=== PATIENT | female | born 1995 | race Caucasian/White ===

== ENCOUNTER → 2016-04-14 | Outpatient (CLI) | payer OTHER ==
[~2016-04-14] MED LIST: /AUGM875TA; COLA50CA; No Historical Meds; TYLENOL #3; VICO5TAB
[2016-04-14 09:16] LABS: BASO # 0.1 K/mm3 (0.0-0.2); BASO % 0.9 % (0.0-1.0); EOS # 0.2 K/mm3 (0.0-0.50); EOS % 2.3 % (0.0-3.0); LYMPH # 1.8 K/mm3 (1.5-6.5); LYMPH % 25.1 % (24.0-44.0); MEAN CORPUSCULAR HEMOGLOBIN 26.5 pg (27.0-33.0); MEAN CORPUSCULAR HGB CONC 31.6 g/dl (32.0-36.5); MEAN CORPUSCULAR VOLUME 83.9 fl (80.0-96.0); MONO # 0.3 K/mm3 (0.0-0.8); MONO % 4.4 % (0.0-5.0); NEUTROPHILS # 4.6 K/mm3 (1.8-7.7); NEUTROPHILS % 65.3 % (36.0-66.0); RED CELL DISTRIBUTION WIDTH 14.2 % (11.5-14.5); WHITE BLOOD COUNT 7.1 K/mm3 (4.0-10.0)
[2016-04-14 10:08] LABS: ALBUMIN 3.8 GM/DL (3.2-5.2); ALBUMIN/GLOBULIN RATIO 1.12 (1.00-1.93); ALKALINE PHOSPHATASE 74 U/L (45-117); ALT/SGPT 38 U/L (12-78); ANION GAP 9 MEQ/L (8-16); AST/SGOT 22 U/L (15-37); BILIRUBIN,TOTAL 0.4 MG/DL (0.2-1.0); BLOOD UREA NITROGEN 15 MG/DL (7-18); CALCIUM LEVEL 8.4 MG/DL (8.5-10.1); CARBON DIOXIDE LEVEL 25 MEQ/L (21-32); CHLORIDE LEVEL 105 MEQ/L (98-107); CHOLESTEROL LEVEL 161 MG/DL (<200); CREATININE FOR GFR 0.62 MG/DL (0.55-1.02); FERRITIN 23 NG/ML (8-252); GLUCOSE, FASTING 102 MG/DL (70-105); POTASSIUM SERUM 4.3 MEQ/L (3.5-5.1); SODIUM LEVEL 139 MEQ/L (136-145); TOTAL PROTEIN 7.2 GM/DL (6.4-8.2); TRIGLYCERIDES LEVEL 159 MG/DL (<150)
== END ==
LOC: M LAB 08:01
PROVIDERS: ATTEND Physician Assistant Medical
DX: D50.9 Iron deficiency anemia, unspecified (principal); I10 Essential (primary) hypertension

== ENCOUNTER → 2016-04-14 | Outpatient (CLI) | payer OTHER ==
[2016-04-14 09:17] LABS: BASO # 0.1 K/mm3 (0.0-0.2); BASO % 0.8 % (0.0-1.0); EOS # 0.2 K/mm3 (0.0-0.50); EOS % 2.3 % (0.0-3.0); LARGE UNSTAINED CELL # 0.2 K/mm3 (0.0-0.4); LARGE UNSTAINED CELL % 2.3 % (0.0-4.0); LYMPH # 1.8 K/mm3 (1.5-6.5); LYMPH % 24.9 % (24.0-44.0); MEAN CORPUSCULAR HEMOGLOBIN 26.4 pg (27.0-33.0); MEAN CORPUSCULAR HGB CONC 31.5 g/dl (32.0-36.5); MEAN CORPUSCULAR VOLUME 83.9 fl (80.0-96.0); MONO # 0.3 K/mm3 (0.0-0.8); MONO % 4.4 % (0.0-5.0); NEUTROPHILS # 4.7 K/mm3 (1.8-7.7); NEUTROPHILS % 65.4 % (36.0-66.0); PLATELET COUNT, AUTOMATED 312 k/mm3 (150-450); RED CELL DISTRIBUTION WIDTH 14.2 % (11.5-14.5); WHITE BLOOD COUNT 7.2 K/mm3 (4.0-10.0)
[2016-04-14 09:41] LABS: ERYTHROCYTE SEDIMENTATION RATE 11 mm/hr (0-20)
[2016-04-14 10:22] LABS: ALBUMIN 3.8 GM/DL (3.2-5.2); ALBUMIN/GLOBULIN RATIO 1.12 (1.00-1.93); ALKALINE PHOSPHATASE 72 U/L (45-117); ALT/SGPT 37 U/L (12-78); ANION GAP 9 MEQ/L (8-16); AST/SGOT 22 U/L (15-37); BILIRUBIN,TOTAL 0.4 MG/DL (0.2-1.0); BLOOD UREA NITROGEN 15 MG/DL (7-18); CALCIUM LEVEL 8.5 MG/DL (8.5-10.1); CARBON DIOXIDE LEVEL 25 MEQ/L (21-32); CHLORIDE LEVEL 105 MEQ/L (98-107); CREATININE FOR GFR 0.58 MG/DL (0.55-1.02); GLUCOSE, FASTING 103 MG/DL (70-105); POTASSIUM SERUM 4.3 MEQ/L (3.5-5.1); SODIUM LEVEL 139 MEQ/L (136-145); TOTAL PROTEIN 7.2 GM/DL (6.4-8.2)
== END ==
LOC: M LAB 08:08
PROVIDERS: ATTEND Psychiatry & Neurology Neurology
DX: R51 Headache (principal)

== ENCOUNTER → 2016-12-28 | Outpatient (CLI) | payer MEDICAID ==
--- NOTE | 2016-12-28 14:44 | REP ---
FIRST TRIMESTER ULTRASOUND: Real-time sonographic evaluation of the gravid uterus performed utilizing transabdominal technique. There is a single living intrauterine gestation with an estimated gestational age 8 weeks 1 day based on a crown-rump length of 17 mm, EDC 08/08/2017. heart rate 176 beats per minute. There is no subchorionic hemorrhage. Cystic structure of the right ovary probably represents a corpus luteum measuring 1.6 cm in maximum diameter. Blood flow is seen in each ovary with duplex Doppler evaluation, with no torsion. Signed by Alan Cullen MD 12/28/2016 02:46 P
== END ==
LOC: M RAD 13:27
PROVIDERS: ATTEND Physician Assistant
DX: Z36.0 Encounter for antenatal screening for chromosomal anomalies (principal); Z3A.08 8 weeks gestation of pregnancy

== ENCOUNTER → 2017-02-06 | Outpatient (CLI) | payer MEDICAID, OTHER ==
--- NOTE | 2017-02-06 16:40 | REP ---
PELVIC ULTRASOUND: Real-time sonographic evaluation of the pelvis performed utilizing transabdominal and endovaginal technique. The bladder measures 5.8 x 5.4 x 6.7 cm. Uterus measures 8.2 x 5.0 x 4.6 cm. Endometrial thickness is 5 mm. Previously noted intrauterine gestation is no longer visualized as seen on 12/28/2016. Ovaries are normal in size and echotexture, the right ovary measuring 2.9 x 1.2 x 1.8 cm and left ovary 2.7 x 2.0 x 2.7 cm. There is no adnexal mass or free fluid. A tiny amount of fluid is seen in the lower uterine segment of the cervix. Resistive index right ovary is 0.61 and left ovary 0.48. IMPRESSION: Empty uterus with no evidence of intrauterine gestation seen on the prior study of 12/28/2016. No torsion or free fluid. Signed by Alan Cullen MD 02/06/2017 04:46 P
== END ==
LOC: M RAD 15:31
PROVIDERS: ATTEND Physician Assistant
DX: Z09 Encounter for follow-up examination after completed treatment for conditions other than malignant neoplasm (principal)

== ENCOUNTER 2017-05-14 17:24 | Emergency (ER) | payer OTHER ==
[2017-05-14] MEDS: ACETAMINOPHEN TAB 650MG DOSE (2X325MG) PO (20:00)
[2017-05-14] MEDS: NS 1,000 ML IV (20:45)
[2017-05-14 21:14] LABS: BASO # 0.1 10^3/uL (0.0-0.2); BASO % 0.7 % (0.0-1.0); EOS % 0.3 % (0.0-3.0); HEMATOCRIT 43.6 % (36.0-47.0); HEMOGLOBIN 13.9 g/dl (12.0-16.0); IMMATURE GRANULOCYTE % 0.2 % (0-3.0); LYMPH # 2.7 10^3/uL (1.5-6.5); LYMPH % 21.8 % (24.0-44.0); MEAN CORPUSCULAR HEMOGLOBIN 25.8 pg (27.0-33.0); MEAN CORPUSCULAR HGB CONC 31.9 g/dl (32.0-36.5); MONO # 0.7 10^3/uL (0.0-0.8); NEUTROPHILS # 8.6 10^3/uL (1.8-7.7); PLATELET COUNT, AUTOMATED 399 10^3/uL (150-450); RED BLOOD COUNT 5.38 10^6/uL (4.00-5.40); RED CELL DISTRIBUTION WIDTH 14.1 % (11.5-14.5); WHITE BLOOD COUNT 12.2 10^3/uL (4.0-10.0)
[2017-05-14 21:42] LABS: CONTROL LINE HCG INT CTR LINE PRESENT; HCG, SERUM QUALITATIVE NEGATIVE (NEGATIVE)
[2017-05-14] MEDS ORDERED: ISOVUE-370 76% 100ML VIAL (Q9967) As Ordered (21:43)
[2017-05-14 21:45] LABS: ANION GAP 10 MEQ/L (8-16); BLOOD UREA NITROGEN 13 MG/DL (7-18); CALCIUM LEVEL 9.2 MG/DL (8.5-10.1); CARBON DIOXIDE LEVEL 24 MEQ/L (21-32); CHLORIDE LEVEL 108 MEQ/L (98-107); CREATININE FOR GFR 0.69 MG/DL (0.55-1.30); GLUCOSE, FASTING 114 MG/DL (70-100); POTASSIUM SERUM 4.2 MEQ/L (3.5-5.1); SODIUM LEVEL 142 MEQ/L (136-145)
[2017-05-14] MEDS ORDERED: IBUPROFEN 600 MG TAB As Ordered (22:00)
[2017-05-14] MEDS: IBUPROFEN 600 MG TAB PO (22:08)
== END 2017-05-14 23:39 | disposition home or self-care (01) ==
LOC: M ED 17:24
DX: Z04.1 Encounter for examination and observation following transport accident (principal); S06.0X0A Concussion without loss of consciousness, initial encounter; S13.4XXA Sprain of ligaments of cervical spine, initial encounter; V43.62XA Car passenger injured in collision with other type car in traffic accident, initial encounter; Y92.89 Other specified places as the place of occurrence of the external cause; Z88.5 Allergy status to narcotic agent
CPT/HCPCS: Q9967

== ENCOUNTER → 2017-10-23 | Outpatient (CLI) | payer OTHER | LOC: M RAD 07:06 | DX: R16.0 Hepatomegaly, not elsewhere classified (principal) | CPT/HCPCS: 76705 ==

== ENCOUNTER 2017-11-28 17:11 | Emergency (ER) | payer SELFPAY, OTHER | END 2017-11-28 19:32 | disposition left against medical advice (07) | LOC: M ED 17:11 | DX: Z53.29 Procedure and treatment not carried out because of patient's decision for other reasons (principal) ==

== ENCOUNTER → 2019-10-31 | Emergency (ER) | payer OTHER, SELFPAY ==
[~2019-10-31] MED LIST changes: +ACETAMINOPHEN 325 MG TAB ONE; +DOXYCYCLINE HYCLATE 100MG TABLET ONE; +ISOVUE-370 76% 100ML VIAL ONE; +NORCO, ANEXSIA 5/325MG TABLET (HYDROcodone/ACETAMINOPHEN) ONE; +SERT-141 PO; +cefTRIAXone SOD 1GM VIAL (J0696 PER 250MG) ONE
[2019-12-15 05:06] LABS: BASO % 0.4 % (0.0-1.0); EOS % 0.3 % (0.0-3.0); HEMATOCRIT 42.4 % (36.0-47.0); HEMOGLOBIN 13.5 g/dl (12.0-15.5); LYMPH # 3.5 10^3/uL (1.5-5.0); MEAN CORPUSCULAR HEMOGLOBIN 28.5 pg (27.0-33.0); MEAN CORPUSCULAR HGB CONC 31.8 g/dl (32.0-36.5); MEAN CORPUSCULAR VOLUME 89.5 fl (80.0-96.0); MONO # 0.7 10^3/uL (0.0-0.8); NEUTROPHILS % 61.9 % (36.0-66.0); PLATELET COUNT, AUTOMATED 356 10^3/uL (150-450); RED BLOOD COUNT 4.74 10^6/uL (4.00-5.40); WHITE BLOOD COUNT 11.2 10^3/uL (4.0-10.0)
--- NOTE | 2019-12-19 15:39 | REP ---
CHEST X-RAY: TWO VIEWS HISTORY: Unavailable. Report is delayed due to a malware attack on this facility. FINDINGS: There is linear plate-like atelectasis in the right base. Lungs are otherwise well-inflated and clear. The pleural angles are sharp. Cardiomediastinal silhouette is unremarkable. Pulmonary vasculature is not increased. No acute bony abnormality is seen. IMPRESSION: Plate-like atelectasis right perihilar and right base region. Otherwise no acute disease. MTDD
[2020-01-20 16:16] LABS: ALBUMIN 3.4 GM/DL (3.2-5.2); ALT/SGPT 24 U/L (12-78); BILIRUBIN,DIRECT < 0.1 MG/DL (0.0-0.2); BILIRUBIN,TOTAL 0.6 MG/DL (0.2-1.0); BLOOD UREA NITROGEN 16 MG/DL (7-18); CALCIUM LEVEL 8.1 MG/DL (8.5-10.1); CARBON DIOXIDE LEVEL 29 MEQ/L (21-32); CHLORIDE LEVEL 108 MEQ/L (98-107); CREATININE FOR GFR 0.65 MG/DL (0.55-1.30); GLOMERULAR FILTRATION RATE > 60.0 (>60); GLUCOSE, FASTING 127 MG/DL (70-100); POTASSIUM SERUM 4.6 MEQ/L (3.5-5.1); SODIUM LEVEL 139 MEQ/L (136-145); TOTAL PROTEIN 6.5 GM/DL (6.4-8.2)
== END | disposition left against medical advice (07) ==
LOC: M ED 10-30 01:25
DX: J18.9 Pneumonia, unspecified organism (principal); Z98.890 Other specified postprocedural states; R00.0 Tachycardia, unspecified; H92.02 Otalgia, left ear; Z91.040 Latex allergy status; Z79.2 Long term (current) use of antibiotics
CPT/HCPCS: 71046; 71250; 74176; 80048; 80076; 83605; 85025; 87040; 87486; 87581; 87633; 87798; 96372; 99284; J0696; Q9967

== ENCOUNTER → 2020-02-23 | Outpatient (REF) | payer OTHER ==
[~2020-02-23] MED LIST changes: -ACETAMINOPHEN 325 MG TAB ONE; -DOXYCYCLINE HYCLATE 100MG TABLET ONE; -ISOVUE-370 76% 100ML VIAL ONE; -NORCO, ANEXSIA 5/325MG TABLET (HYDROcodone/ACETAMINOPHEN) ONE; -cefTRIAXone SOD 1GM VIAL (J0696 PER 250MG) ONE
== END ==
LOC: M LAB REF 17:40
PROVIDERS: ATTEND Physician Assistant
DX: J02.9 Acute pharyngitis, unspecified (principal)

== ENCOUNTER 2020-08-18 11:21 | Emergency (ER) | payer OTHER ==
[~2020-08-18] VITALS: Ht 160 cm; Wt 141.4 kg
[2020-08-18] MEDS ORDERED: METOCLOPRAMIDE INJ 10MG/2ML VIAL (J2765 PER 1) IV ONE (12:05)
[2020-08-18] MEDS ORDERED: NS 1,000 ML IV ONE (12:05)
[2020-08-18] MEDS ORDERED: ACETAMINOPHEN 325 MG TAB PO ONE (12:05)
[2020-08-18 12:41] LABS: BASO # 0.1 10^3/uL (0.0-0.2); BASO % 0.6 % (0.0-1.0); EOS # 0.1 10^3/uL (0.0-0.5); EOS % 0.8 % (0.0-3.0); HEMATOCRIT 45.3 % (36.0-47.0); HEMOGLOBIN 14.5 g/dl (12.0-15.5); LYMPH # 1.4 10^3/uL (1.5-5.0); LYMPH % 16.4 % (24.0-44.0); MEAN CORPUSCULAR HEMOGLOBIN 27.7 pg (27.0-33.0); MEAN CORPUSCULAR VOLUME 86.5 fl (80.0-96.0); MONO # 0.3 10^3/uL (0.0-0.8); MONO % 3.8 % (2.0-8.0); NEUTROPHILS # 6.9 10^3/uL (1.5-8.5); NEUTROPHILS % 78.1 % (36.0-66.0); PLATELET COUNT, AUTOMATED 310 10^3/uL (150-450); RED BLOOD COUNT 5.24 10^6/uL (4.00-5.40); WHITE BLOOD COUNT 8.8 10^3/uL (4.0-10.0)
[2020-08-18 13:08] LABS: ALBUMIN 3.6 GM/DL (3.2-5.2); BILIRUBIN,DIRECT 0.1 MG/DL (0.0-0.2); BILIRUBIN,TOTAL 0.5 MG/DL (0.2-1.0); TOTAL PROTEIN 7.1 GM/DL (6.4-8.2)
[2020-08-18] MEDS ORDERED: KETO10TAB PO (14:13)
[2020-08-18] MEDS ORDERED: ONDA4TAB6 PO (14:13)
[2020-08-18] MEDS ORDERED: KETOROLAC 30 MG/ML 1ML VIAL IV ONE (14:15)
[2020-08-18 14:23] VITALS: BP 136/89
[2020-08-18 16:33] LABS: HEMOGLOBIN A1c 6.6 %
== END 2020-08-18 14:24 | disposition home or self-care (01) ==
LOC: M ED 11:21
DX: R51.9 Headache, unspecified (principal); R73.9 Hyperglycemia, unspecified
CPT/HCPCS: 80047; 80076; 83036; 84702; 85025; 85379; 96374; 96375; 99284; J1885; J2765

== ENCOUNTER 2022-01-23 05:57 | Observation (INO) | payer OTHER ==
[~2022-01-23] VITALS: Ht 160 cm; Wt 137.9 kg
[~2022-01-23 05:57] MED LIST changes: +KETO10TAB PO; +ONDA4TAB6 PO
[2022-01-23] MEDS ORDERED: ONDANSETRON 4MG 2ML VIAL IV ONE (07:35)
[2022-01-23] MEDS ORDERED: NS 1,000 ML IV ONE (07:35)
[2022-01-23 07:46] LABS: BASO # 0.1 10^3/uL (0.0-0.2); BASO % 0.3 % (0.0-1.0); EOS % 0.1 % (0.0-3.0); HEMATOCRIT 43.7 % (36.0-47.0); HEMOGLOBIN 13.6 g/dl (12.0-15.5); LYMPH # 1.4 10^3/uL (1.5-5.0); MEAN CORPUSCULAR HEMOGLOBIN 26.6 pg (27.0-33.0); MEAN CORPUSCULAR HGB CONC 31.1 g/dl (32.0-36.5); MEAN CORPUSCULAR VOLUME 85.4 fl (80.0-96.0); MONO # 0.5 10^3/uL (0.0-0.8); MONO % 2.6 % (2.0-8.0); NEUTROPHILS # 15.9 10^3/uL (1.5-8.5); NEUTROPHILS % 88.6 % (36.0-66.0); PLATELET COUNT, AUTOMATED 399 10^3/uL (150-450); RED BLOOD COUNT 5.12 10^6/uL (4.00-5.40); WHITE BLOOD COUNT 17.9 10^3/uL (4.0-10.0)
[2022-01-23] MEDS ORDERED: MORPHINE 4 MG/ML 1ML VIAL/SYRINGE IV ONE (07:55)
[2022-01-23 08:10] LABS: HCG, SERUM QUALITATIVE POSITIVE (NEGATIVE)
[2022-01-23 08:19] LABS: ALBUMIN 3.6 GM/DL (3.2-5.2); ALT/SGPT 19 U/L (12-78); BILIRUBIN,DIRECT < 0.1 MG/DL (0.0-0.2); BILIRUBIN,TOTAL 0.3 MG/DL (0.2-1.0); BLOOD UREA NITROGEN 7 MG/DL (7-18); CALCIUM LEVEL 8.9 MG/DL (8.5-10.1); CARBON DIOXIDE LEVEL 26 MEQ/L (21-32); CHLORIDE LEVEL 101 MEQ/L (98-107); CREATININE FOR GFR 0.53 MG/DL (0.55-1.30); GLOMERULAR FILTRATION RATE > 60.0 (>60); GLUCOSE, FASTING 162 MG/DL (70-100); LIPASE 85 U/L (73-393); POTASSIUM SERUM 4.2 MEQ/L (3.5-5.1); SODIUM LEVEL 132 MEQ/L (136-145); TOTAL PROTEIN 7.3 GM/DL (6.4-8.2)
[2022-01-23 08:43] LABS: HCG, SERUM QUANTITATIVE 26601 MIU/ML
[2022-01-23 08:45] LABS: RSV AMPLIFICATION NEGATIVE (NEGATIVE)
[2022-01-23] MEDS: FAMOTIDINE 20 MG TAB PO SCH ×2 (09:00→20:07)
[2022-01-23] MEDS ORDERED: PIPERACILLIN/TAZOBACTAM SOD 3.375 GM in D5W MINI-BAG PLUS 50 ML IV ONE (09:10)
[2022-01-23] MEDS ORDERED: MORPHINE 2 MG/ML 1ML VIAL IV ONE (09:50)
[2022-01-23] MEDS ORDERED: HOME MED LIST COMPLETE! XX SCH (12:10)
[2022-01-23] MEDS: NS 1,000 ML IV SCH (12:55)
[2022-01-23] MEDS: PANTOPRAZOLE 40MG VIAL IV SCH ×2 (14:13→20:06)
[2022-01-23] MEDS: KETOROLAC 30 MG/ML 1ML VIAL IV SCH ×2 (14:14→19:02)
[2022-01-23 14:15] VITALS: BP 143/96
[2022-01-23] MEDS: MORPHINE 2 MG/ML 1ML VIAL IV PRN (15:40)
[2022-01-23] MEDS: PIPERACILLIN/TAZOBACTAM SOD 3.375 GM in D5W MINI-BAG PLUS 50 ML IV SCH ×2 (15:41→20:07)
[2022-01-23 18:00] VITALS: BP 136/89
[2022-01-23 20:00] VITALS: BP 125/72
[2022-01-23] MEDS: MORPHINE 4 MG/ML 1ML VIAL/SYRINGE IV PRN (20:14)
[2022-01-24] VITALS (8 sets, daily range): BP systolic 101–137; BP diastolic 51–89
[2022-01-24] MEDS: KETOROLAC 30 MG/ML 1ML VIAL IV SCH ×4 (01:43→20:19)
[2022-01-24] MEDS: MORPHINE 4 MG/ML 1ML VIAL/SYRINGE IV PRN ×5 (01:47→23:55)
[2022-01-24] MEDS: PIPERACILLIN/TAZOBACTAM SOD 3.375 GM in D5W MINI-BAG PLUS 50 ML IV SCH ×4 (02:36→20:20)
[2022-01-24] MEDS: NS 1,000 ML IV SCH ×4 (05:00→15:12)
[2022-01-24 06:26] LABS: HEMATOCRIT 33.8 % (36.0-47.0); MEAN CORPUSCULAR HEMOGLOBIN 26.7 pg (27.0-33.0); MEAN CORPUSCULAR HGB CONC 30.8 g/dl (32.0-36.5); MEAN CORPUSCULAR VOLUME 86.9 fl (80.0-96.0); PLATELET COUNT, AUTOMATED 319 10^3/uL (150-450); RED BLOOD COUNT 3.89 10^6/uL (4.00-5.40); WHITE BLOOD COUNT 9.2 10^3/uL (4.0-10.0)
[2022-01-24 06:34] LABS: HEMOGLOBIN 10.4 g/dl (12.0-15.5)
[2022-01-24 07:13] LABS: ALBUMIN 2.7 GM/DL (3.2-5.2); ALT/SGPT 14 U/L (12-78); BILIRUBIN,TOTAL 0.5 MG/DL (0.2-1.0); BLOOD UREA NITROGEN 12 MG/DL (7-18); CARBON DIOXIDE LEVEL 26 MEQ/L (21-32); CHLORIDE LEVEL 105 MEQ/L (98-107); CREATININE FOR GFR 0.66 MG/DL (0.55-1.30); GLOMERULAR FILTRATION RATE > 60.0 (>60); GLUCOSE, FASTING 114 MG/DL (70-100); LIPASE 91 U/L (73-393); POTASSIUM SERUM 3.7 MEQ/L (3.5-5.1); SODIUM LEVEL 137 MEQ/L (136-145); TOTAL PROTEIN 5.7 GM/DL (6.4-8.2)
[2022-01-24] MEDS: FAMOTIDINE 20 MG TAB PO SCH ×2 (08:13→20:19)
[2022-01-24] MEDS: PANTOPRAZOLE 40MG VIAL IV SCH ×2 (08:13→20:19)
[2022-01-24] MEDS ORDERED: BUPIVACAINE/EPIN 0.25% 30 ML VIAL As Ordered ONE (11:22)
[2022-01-24] MEDS ORDERED: LIDOCAINE 2% 100MG/5ML SDV (FOR ANES.) As Ordered ONE (11:57)
[2022-01-24] MEDS ORDERED: propofoL 200 MG/20 ML VIAL As Ordered ONE (11:57)
[2022-01-24] MEDS ORDERED: ROCURONIUM BROMIDE 50 MG/5 ML VIAL As Ordered ONE ×2 (11:57→13:17)
[2022-01-24] MEDS ORDERED: MIDAZOLAM INJ 2MG/2ML VIAL (J2250 PER 1MG) As Ordered ONE (11:57)
[2022-01-24] MEDS ORDERED: fentaNYL 250 MCG/5 ML INJECTION As Ordered ONE (11:58)
[2022-01-24] MEDS ORDERED: dexameTHASONE 4 MG/ML 1ML VIAL (J1100 PER 1MG) As Ordered ONE (12:04)
[2022-01-24] MEDS ORDERED: ONDANSETRON 4MG 2ML VIAL As Ordered ONE (13:02)
[2022-01-24] MEDS ORDERED: ACETAMINOPHEN 1000MG 100ML IV BTL (OFIRMEV) (J0131 PER 10MG) As Ordered ONE ×2 (13:22→15:03)
[2022-01-24] MEDS ORDERED: KETOROLAC 60MG 2ML VIAL As Ordered ONE (13:26)
[2022-01-24] MEDS ORDERED: SUGAMMADEX SODIUM 500 MG/5 ML VIAL (BRIDION) As Ordered ONE (13:43)
[2022-01-24] MEDS ORDERED: LR 1,000 ML IV SCH (14:10)
[2022-01-24] MEDS ORDERED: ONDANSETRON 4MG 2ML VIAL IV PRN (14:10)
[2022-01-24] MEDS ORDERED: METOCLOPRAMIDE INJ 10MG/2ML VIAL (J2765 PER 1) IV PRN (14:10)
[2022-01-24] MEDS: NORCO, ANEXSIA 5/325MG TABLET (HYDROcodone/ACETAMINOPHEN) PO PRN ×2 (14:28→14:58)
[2022-01-24] MEDS: fentaNYL 100 MCG/2 ML INJECTION IV PRN ×4 (14:29→14:48)
[2022-01-24] MEDS ORDERED: ePHEDrine SULFATE 25 MG/5 ML(5MG/ML) SYRINGE As Ordered ONE (14:42)
[2022-01-24] MEDS ORDERED: PHENYLephrine 500MCG 5ML (100MCG/ML) SYRINGE As Ordered ONE (14:42)
[2022-01-25] VITALS (9 sets, daily range): BP systolic 120–148; BP diastolic 68–86; O2SAT 95–96
[2022-01-25] MEDS: PIPERACILLIN/TAZOBACTAM SOD 3.375 GM in D5W MINI-BAG PLUS 50 ML IV SCH ×4 (02:14→20:33)
[2022-01-25] MEDS: KETOROLAC 30 MG/ML 1ML VIAL IV SCH ×4 (02:15→20:34)
[2022-01-25] MEDS: MORPHINE 4 MG/ML 1ML VIAL/SYRINGE IV PRN ×3 (05:35→13:31)
[2022-01-25 07:05] LABS: HEMOGLOBIN 11.1 g/dl (12.0-15.5); MEAN CORPUSCULAR HEMOGLOBIN 27.4 pg (27.0-33.0); MEAN CORPUSCULAR HGB CONC 31.7 g/dl (32.0-36.5); MEAN CORPUSCULAR VOLUME 86.4 fl (80.0-96.0); PLATELET COUNT, AUTOMATED 350 10^3/uL (150-450); RED BLOOD COUNT 4.05 10^6/uL (4.00-5.40); WHITE BLOOD COUNT 16.6 10^3/uL (4.0-10.0)
[2022-01-25 07:36] LABS: ALBUMIN 2.8 GM/DL (3.2-5.2); ALT/SGPT 25 U/L (12-78); BILIRUBIN,TOTAL 0.2 MG/DL (0.2-1.0); BLOOD UREA NITROGEN 12 MG/DL (7-18); CALCIUM LEVEL 8.7 MG/DL (8.5-10.1); CARBON DIOXIDE LEVEL 25 MEQ/L (21-32); CHLORIDE LEVEL 106 MEQ/L (98-107); CREATININE FOR GFR 0.57 MG/DL (0.55-1.30); GLOMERULAR FILTRATION RATE > 60.0 (>60); GLUCOSE, FASTING 150 MG/DL (70-100); LIPASE 95 U/L (73-393); POTASSIUM SERUM 4.2 MEQ/L (3.5-5.1); SODIUM LEVEL 138 MEQ/L (136-145); TOTAL PROTEIN 6.3 GM/DL (6.4-8.2)
[2022-01-25] MEDS: PANTOPRAZOLE 40MG VIAL IV SCH ×2 (09:28→20:33)
[2022-01-25] MEDS: FAMOTIDINE 20 MG TAB PO SCH ×2 (09:44→20:34)
[2022-01-25] MEDS: MORPHINE 2 MG/ML 1ML VIAL IV PRN (21:56)
[2022-01-26 02:00] VITALS: BP 102/68
[2022-01-26] MEDS: PIPERACILLIN/TAZOBACTAM SOD 3.375 GM in D5W MINI-BAG PLUS 50 ML IV SCH ×2 (03:05→09:29)
[2022-01-26] MEDS: KETOROLAC 30 MG/ML 1ML VIAL IV SCH ×2 (03:08→09:28)
[2022-01-26 06:00] VITALS: BP 117/79
[2022-01-26 06:16] LABS: HEMATOCRIT 33.6 % (36.0-47.0); HEMOGLOBIN 10.2 g/dl (12.0-15.5); MEAN CORPUSCULAR HEMOGLOBIN 26.8 pg (27.0-33.0); MEAN CORPUSCULAR HGB CONC 30.4 g/dl (32.0-36.5); MEAN CORPUSCULAR VOLUME 88.4 fl (80.0-96.0); PLATELET COUNT, AUTOMATED 328 10^3/uL (150-450); WHITE BLOOD COUNT 11.4 10^3/uL (4.0-10.0)
[2022-01-26] MEDS: MORPHINE 2 MG/ML 1ML VIAL IV PRN (06:41)
[2022-01-26 07:01] LABS: ALBUMIN 2.8 GM/DL (3.2-5.2); ALT/SGPT 23 U/L (12-78); BILIRUBIN,TOTAL 0.2 MG/DL (0.2-1.0); BLOOD UREA NITROGEN 17 MG/DL (7-18); CALCIUM LEVEL 8.7 MG/DL (8.5-10.1); CARBON DIOXIDE LEVEL 26 MEQ/L (21-32); CHLORIDE LEVEL 107 MEQ/L (98-107); CREATININE FOR GFR 0.62 MG/DL (0.55-1.30); GLOMERULAR FILTRATION RATE > 60.0 (>60); GLUCOSE, FASTING 102 MG/DL (70-100); LIPASE 124 U/L (73-393); SODIUM LEVEL 140 MEQ/L (136-145); TOTAL PROTEIN 5.9 GM/DL (6.4-8.2)
[2022-01-26] MEDS ORDERED: AMOX875T2 PO (08:46)
[2022-01-26] MEDS ORDERED: HYDR-3713 PO (08:46)
[2022-01-26] MEDS: FAMOTIDINE 20 MG TAB PO SCH (09:27)
[2022-01-26] MEDS: PANTOPRAZOLE 40MG VIAL IV SCH (09:28)
[2022-01-26 10:00] VITALS: BP 142/93
== END 2022-01-26 11:40 | disposition home or self-care (01) ==
LOC: M ED 05:57 → M ED INP 05:58 → ENRESERV 13:01 → M MSPAV 13:57
PROVIDERS: ADMIT Surgery; ATTEND Surgery
DX: K80.12 Calculus of gallbladder with acute and chronic cholecystitis without obstruction (principal); K76.0 Fatty (change of) liver, not elsewhere classified; Z32.01 Encounter for pregnancy test, result positive; I10 Essential (primary) hypertension; E66.01 Morbid (severe) obesity due to excess calories; Z68.43 Body mass index [BMI] 50.0-59.9, adult; Z91.040 Latex allergy status
CPT/HCPCS: 36415; 47562; 76705; 76801; 76817; 80048; 80053; 80076; 81000; 81015; 83690; 84702; 84703; 85025; 85027; 87631; 88304; 93976; 96361; 96365; 96366; 96375; 96376; 99284; C9113; J0131; J1100; J1885; J2250; J2270; J2370; J2405; J2543; J3010

== ENCOUNTER 2022-01-27 16:09 | Emergency (ER) | payer OTHER ==
[~2022-01-27] VITALS: Ht 160 cm; Wt 137.9 kg
[~2022-01-27 16:09] MED LIST changes: +AMOX875T2 PO; +HYDR-3713 PO
[2022-01-27 18:50] LABS: BASO # 0.1 10^3/uL (0.0-0.2); BASO % 0.5 % (0.0-1.0); EOS # 0.1 10^3/uL (0.0-0.5); EOS % 0.5 % (0.0-3.0); HEMATOCRIT 37.9 % (36.0-47.0); HEMOGLOBIN 11.9 g/dl (12.0-15.5); LYMPH # 2.2 10^3/uL (1.5-5.0); LYMPH % 16.8 % (24.0-44.0); MEAN CORPUSCULAR HEMOGLOBIN 26.9 pg (27.0-33.0); MEAN CORPUSCULAR HGB CONC 31.4 g/dl (32.0-36.5); MEAN CORPUSCULAR VOLUME 85.7 fl (80.0-96.0); MONO # 0.7 10^3/uL (0.0-0.8); PLATELET COUNT, AUTOMATED 372 10^3/uL (150-450); RED BLOOD COUNT 4.42 10^6/uL (4.00-5.40)
[2022-01-27 19:26] LABS: HCG, SERUM QUALITATIVE POSITIVE (NEGATIVE)
[2022-01-27 19:28] LABS: ALBUMIN 3.1 GM/DL (3.2-5.2); ALT/SGPT 40 U/L (12-78); BILIRUBIN,DIRECT 0.2 MG/DL (0.0-0.2); BILIRUBIN,TOTAL 0.4 MG/DL (0.2-1.0); BLOOD UREA NITROGEN 8 MG/DL (7-18); CALCIUM LEVEL 8.7 MG/DL (8.5-10.1); CARBON DIOXIDE LEVEL 26 MEQ/L (21-32); CHLORIDE LEVEL 102 MEQ/L (98-107); GLOMERULAR FILTRATION RATE > 60.0 (>60); GLUCOSE, FASTING 109 MG/DL (70-100); LIPASE 79 U/L (73-393); SODIUM LEVEL 137 MEQ/L (136-145); TOTAL PROTEIN 6.6 GM/DL (6.4-8.2)
[2022-01-27] MEDS ORDERED: NS 1,000 ML IV ONE (20:20)
[2022-01-27] MEDS ORDERED: MORPHINE 4 MG/ML 1ML VIAL/SYRINGE IV ONE (20:20)
[2022-01-27] MEDS ORDERED: ONDANSETRON 4MG 2ML VIAL IV ONE (20:20)
[2022-01-27] MEDS ORDERED: cefTRIAXone SOD 1 GM in D5W MINI-BAG PLUS 50 ML IV ONE (20:40)
[2022-01-27 21:07] LABS: HCG, SERUM QUANTITATIVE 25374 MIU/ML
[2022-01-28] MEDS ORDERED: MORPHINE 4 MG/ML 1ML VIAL/SYRINGE IV ONE (00:40)
[2022-01-28] MEDS ORDERED: ISOVUE-370 76% 100ML VIAL As Ordered ONE (01:08)
[2022-01-28] MEDS ORDERED: AZIT-12 PO (02:15)
[2022-01-28 02:25] VITALS: BP 140/85
== END 2022-01-28 02:59 | disposition home or self-care (01) ==
LOC: M ED 16:09
DX: O99.511 Diseases of the respiratory system complicating pregnancy, first trimester (principal); J18.9 Pneumonia, unspecified organism; O03.80 Unspecified complication following complete or unspecified spontaneous abortion; O02.0 Blighted ovum and nonhydatidiform mole; Z91.040 Latex allergy status
CPT/HCPCS: 71046; 74177; 76801; 76817; 80048; 80076; 83690; 84702; 84703; 85025; 93976; 96365; 96375; 96376; 99284; J0696; J2270; J2405

== ENCOUNTER 2022-02-01 01:16 | Emergency (ER) | payer OTHER ==
[~2022-02-01] VITALS: Ht 160 cm; Wt 134.6 kg
[~2022-02-01 01:16] MED LIST changes: +AZIT-12 PO
[2022-02-01 02:35] LABS: BASO # 0.1 10^3/uL (0.0-0.2); BASO % 0.6 % (0.0-1.0); EOS # 0.1 10^3/uL (0.0-0.5); EOS % 0.7 % (0.0-3.0); HEMATOCRIT 40.6 % (36.0-47.0); HEMOGLOBIN 12.8 g/dl (12.0-15.5); LYMPH # 2.4 10^3/uL (1.5-5.0); LYMPH % 13.5 % (24.0-44.0); MEAN CORPUSCULAR HEMOGLOBIN 26.4 pg (27.0-33.0); MEAN CORPUSCULAR HGB CONC 31.5 g/dl (32.0-36.5); MEAN CORPUSCULAR VOLUME 83.9 fl (80.0-96.0); MONO # 0.7 10^3/uL (0.0-0.8); MONO % 3.9 % (2.0-8.0); NEUTROPHILS # 14.6 10^3/uL (1.5-8.5); NEUTROPHILS % 80.9 % (36.0-66.0); PLATELET COUNT, AUTOMATED 450 10^3/uL (150-450); RED BLOOD COUNT 4.84 10^6/uL (4.00-5.40)
[2022-02-01 03:05] LABS: BLOOD UREA NITROGEN 14 MG/DL (7-18); CALCIUM LEVEL 9.1 MG/DL (8.5-10.1); CARBON DIOXIDE LEVEL 22 MEQ/L (21-32); CHLORIDE LEVEL 102 MEQ/L (98-107); GLOMERULAR FILTRATION RATE > 60.0 (>60); GLUCOSE, FASTING 172 MG/DL (70-100); POTASSIUM SERUM 4.9 MEQ/L (3.5-5.1); SODIUM LEVEL 135 MEQ/L (136-145)
[2022-02-01] MEDS ORDERED: KETOROLAC 30 MG/ML 1ML VIAL IV ONE (04:00)
[2022-02-01 04:14] VITALS: BP 144/93
[2022-02-01 05:06] LABS: HCG, SERUM QUANTITATIVE 11220 MIU/ML
[2022-02-01] MEDS ORDERED: IBUP-1114 PO (05:24)
== END 2022-02-01 05:53 | disposition home or self-care (01) ==
LOC: M ED 01:16
DX: O03.0 Genital tract and pelvic infection following incomplete spontaneous abortion (principal); N93.9 Abnormal uterine and vaginal bleeding, unspecified; Z90.49 Acquired absence of other specified parts of digestive tract; Z91.040 Latex allergy status; Z90.89 Acquired absence of other organs
CPT/HCPCS: 76856; 80048; 84702; 85025; 86850; 86900; 86901; 96374; 99283; J1885

== ENCOUNTER → 2022-02-08 | Outpatient (CLI) | payer OTHER ==
[~2022-02-08] MED LIST changes: +IBUP-1114 PO
== END ==
LOC: M PLALAB 15:29
PROVIDERS: ATTEND Obstetrics & Gynecology
DX: O03.9 Complete or unspecified spontaneous abortion without complication (principal)

== ENCOUNTER → 2022-04-15 | Outpatient (CLI) | payer OTHER ==
[2022-04-15 16:14] LABS: BASO # 0.1 10^3/uL (0.0-0.2); BASO % 0.5 % (0.0-1.0); EOS # 0.1 10^3/uL (0.0-0.5); EOS % 1.1 % (0.0-3.0); HEMATOCRIT 39.4 % (36.0-47.0); LYMPH # 2.4 10^3/uL (1.5-5.0); LYMPH % 21.4 % (24.0-44.0); MEAN CORPUSCULAR HEMOGLOBIN 25.6 pg (27.0-33.0); MEAN CORPUSCULAR HGB CONC 30.5 g/dl (32.0-36.5); MONO # 0.7 10^3/uL (0.0-0.8); NEUTROPHILS # 7.8 10^3/uL (1.5-8.5); NEUTROPHILS % 70.7 % (36.0-66.0); PLATELET COUNT, AUTOMATED 387 10^3/uL (150-450); RED BLOOD COUNT 4.69 10^6/uL (4.00-5.40)
[2022-04-15 16:25] LABS: ALBUMIN 3.6 G/DL (3.2-5.2); ALKALINE PHOSPHATASE 55 U/L (46-116); ALT/SGPT 14 U/L (7.0-40); AST/SGOT 12 U/L (<34); BILIRUBIN,TOTAL 0.3 MG/DL (0.3-1.2); BLOOD UREA NITROGEN 13 MG/DL (9-23); CALCIUM LEVEL 8.6 MG/DL (8.5-10.1); CARBON DIOXIDE LEVEL 28 MMOL/L (20-31); CHLORIDE LEVEL 104 MMOL/L (98-107); CREATININE FOR GFR 0.55 MG/DL (0.55-1.30); GLOMERULAR FILTRATION RATE > 60.0 (>60); GLUCOSE, FASTING 112 MG/DL (60-100); POTASSIUM SERUM 4.1 MMOL/L (3.5-5.1); SODIUM LEVEL 137 MMOL/L (136-145); TOTAL PROTEIN 6.6 G/DL (5.7-8.2)
== END ==
LOC: M PLALAB 13:40
PROVIDERS: ATTEND Physician Assistant
DX: Z46.89 Encounter for fitting and adjustment of other specified devices (principal)

== ENCOUNTER → 2022-04-15 | Outpatient (CLI) | payer OTHER | LOC: M PLALAB 13:43 | PROVIDERS: ATTEND Obstetrics & Gynecology | DX: O03.9 Complete or unspecified spontaneous abortion without complication (principal) ==

== ENCOUNTER → 2022-05-03 | Outpatient (REF) | payer OTHER ==
[2022-05-03 11:55] LABS: BASO # 0.1 10^3/uL (0.0-0.2); BASO % 0.9 % (0.0-1.0); EOS # 0.2 10^3/uL (0.0-0.5); EOS % 2.5 % (0.0-3.0); HEMATOCRIT 39.7 % (36.0-47.0); HEMOGLOBIN 11.9 g/dl (12.0-15.5); LYMPH # 2.4 10^3/uL (1.5-5.0); LYMPH % 30.8 % (24.0-44.0); MEAN CORPUSCULAR HEMOGLOBIN 25.6 pg (27.0-33.0); MEAN CORPUSCULAR VOLUME 85.6 fl (80.0-96.0); MONO # 0.5 10^3/uL (0.0-0.8); MONO % 6.3 % (2.0-8.0); NEUTROPHILS # 4.7 10^3/uL (1.5-8.5); NEUTROPHILS % 59.2 % (36.0-66.0); PLATELET COUNT, AUTOMATED 386 10^3/uL (150-450); RED BLOOD COUNT 4.64 10^6/uL (4.00-5.40); WHITE BLOOD COUNT 7.9 10^3/uL (4.0-10.0)
== END ==
LOC: M LAB REF 11:18
PROVIDERS: ATTEND Nurse Practitioner Family
DX: R73.03 Prediabetes (principal); E66.01 Morbid (severe) obesity due to excess calories

== ENCOUNTER → 2022-11-09 | Outpatient (REF) | payer OTHER | LOC: M WUC 19:16 | PROVIDERS: ATTEND Physician Assistant | DX: R19.7 Diarrhea, unspecified (principal) ==

== ENCOUNTER → 2023-09-06 | Outpatient (REF) | payer OTHER ==
[~2023-09-06] MED LIST changes: +ONDA-282 PO; -ONDA4TAB6 PO
[2023-09-07 13:01] LABS: CREATININE, URINE 233.2 MG/DL; MAU/CREAT RATIO 67.3 MCG/MG (0.0-30.0)
== END ==
LOC: M LAB REF 11:21
PROVIDERS: ATTEND Physician Assistant
DX: E11.9 Type 2 diabetes mellitus without complications (principal)

== ENCOUNTER → 2023-09-18 | Outpatient (REF) | payer OTHER ==
[2023-09-19 14:09] LABS: BASO # 0.1 10^3/uL (0.0-0.2); BASO % 0.7 % (0.0-1.0); EOS # 0.1 10^3/uL (0.0-0.5); HEMATOCRIT 41.5 % (36.0-47.0); HEMOGLOBIN 12.9 g/dl (12.0-15.5); LYMPH # 2.5 10^3/uL (1.5-5.0); LYMPH % 25.4 % (24.0-44.0); MEAN CORPUSCULAR HEMOGLOBIN 26.8 pg (27.0-33.0); MEAN CORPUSCULAR HGB CONC 31.1 g/dl (32.0-36.5); MEAN CORPUSCULAR VOLUME 86.1 fl (80.0-96.0); MONO # 0.5 10^3/uL (0.0-0.8); NEUTROPHILS # 6.6 10^3/uL (1.5-8.5); NEUTROPHILS % 66.1 % (36.0-66.0); PLATELET COUNT, AUTOMATED 357 10^3/uL (150-450); RED BLOOD COUNT 4.82 10^6/uL (4.00-5.40)
[2023-09-19 14:13] LABS: MAGNESIUM LEVEL 1.8 MG/DL (1.8-2.4)
[2023-09-19 14:15] LABS: FERRITIN 16.6 NG/ML (7.3-270.7); PERCENT SATURATION 7.9 % (13.2-45.0)
[2023-09-19 14:16] LABS: FOLATE 23.5 NG/ML (>5.4)
[2023-09-19 14:29] LABS: HEMOGLOBIN A1c 6.4 % (4.0-6.0)
== END ==
LOC: M LAB REF 12:04
PROVIDERS: ATTEND Physician Assistant
DX: R53.81 Other malaise (principal); D64.9 Anemia, unspecified

== ENCOUNTER → 2023-10-27 | Outpatient (CLI) | payer OTHER ==
[2023-10-27 10:05] LABS: HEMATOCRIT 45.1 % (36.0-47.0); HEMOGLOBIN 14.2 g/dl (12.0-15.5); MEAN CORPUSCULAR HEMOGLOBIN 27.3 pg (27.0-33.0); MEAN CORPUSCULAR HGB CONC 31.5 g/dl (32.0-36.5); MEAN CORPUSCULAR VOLUME 86.7 fl (80.0-96.0); PLATELET COUNT, AUTOMATED 388 10^3/uL (150-450); WHITE BLOOD COUNT 8.6 10^3/uL (4.0-10.0)
[2023-10-27 10:24] LABS: ALBUMIN 3.6 G/DL (3.2-5.2); ALKALINE PHOSPHATASE 50 U/L (46-116); ALT/SGPT 19 U/L (7.0-40); AST/SGOT 11 U/L (<34); BILIRUBIN,TOTAL 0.3 MG/DL (0.3-1.2); BLOOD UREA NITROGEN 12 MG/DL (9-23); CARBON DIOXIDE LEVEL 26 MMOL/L (20-31); CHLORIDE LEVEL 105 MMOL/L (98-107); CREATININE FOR GFR 0.57 MG/DL (0.55-1.30); GLOMERULAR FILTRATION RATE > 60.0 (>60); GLUCOSE, FASTING 109 MG/DL (60-100); POTASSIUM SERUM 4.4 MMOL/L (3.5-5.1); SODIUM LEVEL 138 MMOL/L (136-145); TOTAL PROTEIN 7.1 G/DL (5.7-8.2)
[2023-10-27 10:27] LABS: FOLLICLE STIMULATING HORMONE 6.3 mIU/ML; LUTEINIZING HORMONE 0.6 mIU/ML
[2023-10-27 10:28] LABS: ESTRADIOL < 19.0 PG/ML; FREE T4 1.94 NG/DL (0.89-1.76); THYROID STIMULATING HORMONE 1.305 uIU/ML (0.55-4.78)
[2023-10-28 07:33] LABS: DEHYDROEPIANDROSTERONE SULFATE 146 mcg/dL (14-349)
== END ==
LOC: M PLALAB 08:57
PROVIDERS: ATTEND Pediatrics
DX: E28.2 Polycystic ovarian syndrome (principal)

== ENCOUNTER → 2024-01-03 | Outpatient (CLI) | payer OTHER | LOC: M WHC 15:13 | PROVIDERS: ATTEND Obstetrics & Gynecology | DX: R10.2 Pelvic and perineal pain (principal) ==

== ENCOUNTER → 2024-02-16 | Outpatient (REF) | payer OTHER | LOC: M LAB REF 16:27 | PROVIDERS: ATTEND Physician Assistant | DX: R63.8 Other symptoms and signs concerning food and fluid intake (principal); F41.8 Other specified anxiety disorders ==

== ENCOUNTER → 2024-07-17 | Outpatient (CLI) | payer OTHER ==
[2024-07-17 15:04] LABS: BASO # 0.1 10^3/uL (0.0-0.2); BASO % 0.7 % (0.0-1.0); EOS # 0.1 10^3/uL (0.0-0.5); EOS % 0.7 % (0.0-3.0); HEMATOCRIT 42.9 % (36.0-47.0); HEMOGLOBIN 13.7 g/dl (12.0-15.5); LYMPH # 2.2 10^3/uL (1.5-5.0); LYMPH % 19.9 % (24.0-44.0); MEAN CORPUSCULAR HGB CONC 31.9 g/dl (32.0-36.5); MEAN CORPUSCULAR VOLUME 87.6 fl (80.0-96.0); MONO # 0.5 10^3/uL (0.0-0.8); MONO % 4.4 % (2.0-8.0); NEUTROPHILS # 8.1 10^3/uL (1.5-8.5); NEUTROPHILS % 73.9 % (36.0-66.0); PLATELET COUNT, AUTOMATED 423 10^3/uL (150-450)
[2024-07-17 15:11] LABS: ERYTHROCYTE SEDIMENTATION RATE 64 mm/hr (0-20)
[2024-07-17 15:36] LABS: BLOOD UREA NITROGEN 14 MG/DL (9-23); C REACTIVE PROTEIN QUANTITATIV 1.62 MG/DL (<1.0); CALCIUM LEVEL 9.1 MG/DL (8.5-10.1); CARBON DIOXIDE LEVEL 26 MMOL/L (20-31); CHLORIDE LEVEL 101 MMOL/L (98-107); CREATININE FOR GFR 0.56 MG/DL (0.55-1.30); GLOMERULAR FILTRATION RATE > 90.0 (>60); GLUCOSE, FASTING 125 MG/DL (60-100); POTASSIUM SERUM 4.4 MMOL/L (3.5-5.1); SODIUM LEVEL 137 MMOL/L (136-145)
== END ==
LOC: M LAB 14:32
PROVIDERS: ATTEND Physician Assistant
DX: L98.8 Other specified disorders of the skin and subcutaneous tissue (principal)

== ENCOUNTER → 2024-07-31 | Outpatient (REF) | payer OTHER ==
[2024-07-31 18:06] LABS: BASO # 0.1 10^3/uL (0.0-0.2); BASO % 0.7 % (0.0-1.0); EOS # 0.1 10^3/uL (0.0-0.5); EOS % 0.9 % (0.0-3.0); HEMATOCRIT 39.9 % (36.0-47.0); HEMOGLOBIN 12.7 g/dl (12.0-15.5); LYMPH # 2.3 10^3/uL (1.5-5.0); LYMPH % 21.4 % (24.0-44.0); MEAN CORPUSCULAR HEMOGLOBIN 27.9 pg (27.0-33.0); MEAN CORPUSCULAR HGB CONC 31.8 g/dl (32.0-36.5); MEAN CORPUSCULAR VOLUME 87.5 fl (80.0-96.0); MONO # 0.5 10^3/uL (0.0-0.8); MONO % 4.9 % (2.0-8.0); NEUTROPHILS # 7.7 10^3/uL (1.5-8.5); NEUTROPHILS % 71.7 % (36.0-66.0); PLATELET COUNT, AUTOMATED 421 10^3/uL (150-450); RED BLOOD COUNT 4.56 10^6/uL (4.00-5.40); WHITE BLOOD COUNT 10.8 10^3/uL (4.0-10.0)
[2024-07-31 18:44] LABS: ERYTHROCYTE SEDIMENTATION RATE 57 mm/hr (0-20)
[2024-07-31 19:08] LABS: C REACTIVE PROTEIN QUANTITATIV 1.81 MG/DL (<1.0)
[2024-07-31 19:10] LABS: ALBUMIN 3.3 G/DL (3.2-5.2); ALKALINE PHOSPHATASE 45 U/L (35-104); ALT/SGPT 14 U/L (7.0-40); AST/SGOT 8 U/L (<34); BILIRUBIN,TOTAL 0.2 MG/DL (0.3-1.2); BLOOD UREA NITROGEN 11 MG/DL (9-23); CARBON DIOXIDE LEVEL 26 MMOL/L (20-31); CHLORIDE LEVEL 103 MMOL/L (98-107); CREATININE FOR GFR 0.75 MG/DL (0.55-1.30); FOLATE 11.4 NG/ML (>5.4); GLOMERULAR FILTRATION RATE > 90.0 (>60); GLUCOSE, FASTING 127 MG/DL (60-100); POTASSIUM SERUM 4.2 MMOL/L (3.5-5.1); SODIUM LEVEL 140 MMOL/L (136-145); TOTAL PROTEIN 6.8 G/DL (5.7-8.2); VITAMIN B12 LEVEL 143 PG/ML (211-911)
[2024-08-01 12:56] LABS: RHEUMATOID FACTOR QUANT 7.7 IU/ML (<14)
== END ==
LOC: M LAB REF 16:56
PROVIDERS: ATTEND Physician Assistant
DX: R53.81 Other malaise (principal)

== ENCOUNTER → 2024-07-31 | Outpatient (REF) | payer OTHER | LOC: M LAB REF 17:08 | PROVIDERS: ATTEND Physician Assistant | DX: R53.81 Other malaise (principal) ==

== ENCOUNTER 2024-08-10 11:49 | Emergency (ER) | payer OTHER ==
[~2024-08-10] VITALS: Ht 160 cm; Wt 123.2 kg
[2024-08-10 12:14] VITALS: TEMP 97.9
[2024-08-10 12:42] LABS: BASO # 0.1 10^3/uL (0.0-0.2); BASO % 0.7 % (0.0-1.0); EOS # 0.1 10^3/uL (0.0-0.5); EOS % 0.5 % (0.0-3.0); HEMATOCRIT 42.7 % (36.0-47.0); HEMOGLOBIN 13.8 g/dl (12.0-15.5); LYMPH # 2.1 10^3/uL (1.5-5.0); MEAN CORPUSCULAR HEMOGLOBIN 28.3 pg (27.0-33.0); MEAN CORPUSCULAR HGB CONC 32.3 g/dl (32.0-36.5); MEAN CORPUSCULAR VOLUME 87.5 fl (80.0-96.0); MONO # 0.5 10^3/uL (0.0-0.8); MONO % 4.2 % (2.0-8.0); NEUTROPHILS # 8.7 10^3/uL (1.5-8.5); NEUTROPHILS % 76.3 % (36.0-66.0); PLATELET COUNT, AUTOMATED 388 10^3/uL (150-450); RED BLOOD COUNT 4.88 10^6/uL (4.00-5.40); WHITE BLOOD COUNT 11.4 10^3/uL (4.0-10.0)
[2024-08-10 14:28] LABS: KETONE, URINE AUTO RFX NEGATIVE (NEGATIVE); LEUKOCYTE ESTERASE UR AUTO RFX NEGATIVE (NEGATIVE); MUCUS, URINE RFX SMALL (NEGATIVE); NITRITE, URINE AUTO RFX NEGATIVE (NEGATIVE); RBC, URINE AUTO RFX 100 /HPF (0-3); SQUAM EPITHELIAL CELL UR AURFX 2 /HPF (0-6); WBC, URINE AUTO RFX 0 /HPF (0-3)
[2024-08-10 15:54] VITALS: BP 145/94; O2SAT 96
== END 2024-08-10 15:55 | disposition home or self-care (01) ==
LOC: M ED 11:49 → EDBD 11:49 → M ED 15:55
DX: R55 Syncope and collapse (principal); R00.0 Tachycardia, unspecified; E11.9 Type 2 diabetes mellitus without complications; M32.9 Systemic lupus erythematosus, unspecified; Z91.040 Latex allergy status; Z79.1 Long term (current) use of non-steroidal anti-inflammatories (NSAID)

== ENCOUNTER → 2024-11-07 | Outpatient (REF) | payer OTHER ==
[2024-11-08 16:57] LABS: ANA TITER 2 1:80 titer (NEGATIVE)
== END ==
LOC: M LAB REF 14:39
PROVIDERS: ATTEND Physician Assistant
DX: R76.8 Other specified abnormal immunological findings in serum (principal)

== ENCOUNTER → 2025-01-08 | Outpatient (CLI) | payer OTHER | LOC: M RAD 07:15 | PROVIDERS: ATTEND Physician Assistant Medical | DX: R10.13 Epigastric pain (principal); R19.7 Diarrhea, unspecified; R11.2 Nausea with vomiting, unspecified ==

== ENCOUNTER → 2025-02-12 | Outpatient (CLI) | payer OTHER ==
[2025-02-12 12:44] LABS: PLATELET COUNT, AUTOMATED 358 10^3/uL (150-450)
[2025-02-12 13:05] LABS: ALT/SGPT 23.0 U/L (7.0-40); AST/SGOT 18.0 U/L (<34); C REACTIVE PROTEIN QUANTITATIV 1.33 MG/DL (<1.0)
== END ==
LOC: M WUC 10:07
PROVIDERS: ATTEND Internal Medicine Gastroenterology
DX: R10.13 Epigastric pain (principal); R11.2 Nausea with vomiting, unspecified

== ENCOUNTER 2025-03-05 19:32 | Emergency (ER) | payer OTHER ==
[~2025-03-05] VITALS: Ht 160 cm; Wt 137.3 kg
[2025-03-05 20:58] LABS: BASO # 0.1 10^3/uL (0.0-0.2); BASO % 0.6 % (0.0-1.0); EOS # 0.0 10^3/uL (0.0-0.5); EOS % 0.3 % (0.0-3.0); LYMPH # 1.8 10^3/uL (1.5-5.0); LYMPH % 12.5 % (24.0-44.0); MONO # 0.5 10^3/uL (0.0-0.8); MONO % 3.8 % (2.0-8.0); NEUTROPHILS # 11.7 10^3/uL (1.5-8.5); NEUTROPHILS % 82.4 % (36.0-66.0); PLATELET COUNT, AUTOMATED 448 10^3/uL (150-450)
[2025-03-05 21:15] LABS: ALT/SGPT 28 U/L (7.0-40); AST/SGOT 21 U/L (<34); CALCIUM LEVEL 9.1 MG/DL (8.5-10.1); CARBON DIOXIDE LEVEL 25 MMOL/L (20-31); CHLORIDE LEVEL 101 MMOL/L (98-107); CREATININE FOR GFR 0.46 MG/DL (0.55-1.30); GLOMERULAR FILTRATION RATE > 90.0 (>60); POTASSIUM SERUM 4.7 MMOL/L (3.5-5.1); SODIUM LEVEL 138 MMOL/L (136-145)
[2025-03-05 21:28] LABS: HCG, SERUM QUALITATIVE NEGATIVE (NEGATIVE)
[2025-03-05 21:30] VITALS: TEMP 102.2
[2025-03-05] MEDS: ONDANSETRON 4MG ORAL DISINTEGRATING TAB PO ONE (21:46)
[2025-03-05] MEDS: ACETAMINOPHEN 500 MG TAB PO ONE (22:12)
[2025-03-05 23:09] LABS: KETONE, URINE AUTO RFX 1+ mg/dL (NEGATIVE); LEUKOCYTE ESTERASE UR AUTO RFX 1+ (NEGATIVE); MUCUS, URINE RFX SMALL (NEGATIVE); NITRITE, URINE AUTO RFX NEGATIVE (NEGATIVE); RBC, URINE AUTO RFX 1 /HPF (0-3); SQUAM EPITHELIAL CELL UR AURFX 7 /HPF (0-6); WBC, URINE AUTO RFX 4 /HPF (0-3)
[2025-03-06] VITALS: BP 146/91
[2025-03-06 00:15] VITALS: O2SAT 98
[2025-03-06] MEDS: KETOROLAC 30 MG/ML 1 ML VIAL IV ONE (00:22)
[2025-03-06 00:56] LABS: C REACTIVE PROTEIN QUANTITATIV 1.54 MG/DL (<1.0)
[2025-03-06 00:58] LABS: PROLACTIN 3.21 NG/ML
== END 2025-03-06 00:45 | disposition left against medical advice (07) ==
LOC: M ED 19:32
DX: R11.10 Vomiting, unspecified (principal); G40.909 Epilepsy, unspecified, not intractable, without status epilepticus; M32.9 Systemic lupus erythematosus, unspecified; Z91.040 Latex allergy status; Z79.1 Long term (current) use of non-steroidal anti-inflammatories (NSAID); Z53.9 Procedure and treatment not carried out, unspecified reason
CPT/HCPCS: 80048; 80076; 81001; 83605; 83690; 84146; 84703; 85025; 85652; 86140; 87086; 87486; 87581; 87633; 87798; 96374; 99284; J1885; J2765